=== PATIENT | female | born 1965 | race Caucasian/White ===

== ENCOUNTER 2023-04-23 17:23 | Emergency (ER) | payer OTHER, SELFPAY ==
[2023-04-23] VITALS (44 sets, daily range): BP systolic 112–172; BP diastolic 52–128; PULSE 57–84; RESP 6–24; TEMP 36.5–37.4; O2SAT 95–99
--- NOTE | 2023-04-23 17:15 | RT.EKG_ITS ---
APPROVED REPORT Exam: Resting ECG Reason for Exam: chest pain Patient Location: E HR:82 bpm ECG Measurements Heart Rate 82 AXIS NM 136 P 60 QRSd 77 QRS 66 QT 373 T 72 QTc 436 Conclusion Sinus rhythm 82 normal axis no stemi
[2023-04-23 18:23] LABS: Abs Immature Grans 0.05 10^3/uL (0.0-0.06); Absolute Basophil Count 0.06 10^3/uL (0.0-0.2); Absolute Eosinophil Count 0.08 10^3/uL (0.0-0.7); Absolute Lymphocyte Count 1.71 10^3/uL (1.2-3.4); Absolute Neutrophil Count 5.28 10^3/uL (1.2-6.7); Basophils % 0.8; HCT 32.3 % (36.0-46.0); HGB 12.8 g/dL (11.2-15.7); Immature Grans % 0.7; Lymphocytes % 22.3; MCV 84 fL (80-95); Monocytes % 6.5; Neutrophils % 68.7; Platelet Count 175 10^3/uL (130-400); RBC 3.84 10^6/uL (3.93-5.22); RDW 12.5 % (11.7-14.6); RDW-SD 37.7 fL; WBC 7.68 10^3/uL (4.4-10.8)
[2023-04-23 18:56] LABS: ALT 18 U/L (14-59); AST 17 U/L (15-37); Albumin 4.7 g/dL (3.4-5.0); Alkaline Phosphatase 80 U/L (46-116); Anion Gap 9.1 mmol/L (3-11); BUN 20 mg/dL (7-18); Bilirubin, Total 2.9 mg/dL (0.2-1.0); CO2 28.9 mmol/L (21.0-32.0); CREATININE 0.8 mg/dL (0.55-1.02); Calcium 9.4 mg/dL (8.5-10.1); Chloride 104 mmol/L (98-107); Estimated GFR 85.89 (mL/min/1.73m2); Glucose 91 mg/dL (74-106); Potassium 4.2 mmol/L (3.5-5.1); Sodium 142 mmol/L (136-145); Total Protein 7.3 g/dL (6.4-8.2)
[2023-04-23 18:59] LABS: Troponin I 79 ng/L (< or =60)
[2023-04-23] MEDS: Aspirin 325 MG TAB PO (19:19)
[2023-04-23 20:15] LABS: Diff Comment RBC Morph Reviewed; RBC Morphology Normal
--- NOTE | 2023-04-23 20:45 | RT.EKG_ITS ---
APPROVED REPORT Exam: Resting ECG Reason for Exam: chest pain Patient Location: E HR:68 bpm ECG Measurements Heart Rate 68 AXIS CA 146 P 48 QRSd 74 QRS 57 QT 431 T 72 QTc 459 Conclusion Sinus rhythm 68 normal axis no stemi
[2023-04-23 20:58] LABS: Troponin I 79 ng/L (< or =60)
[2023-04-23] MEDS: Normal Saline Flush 10 ML SYR IVP (21:03)
[2023-04-23] MEDS: Acetaminophen 500 MG TAB 1000 MG PO (21:24)
[2023-04-23 21:58] LABS: COVID-19 PCR Negative (Negative); Influenza A PCR Negative (Negative); Influenza B PCR Negative (Negative); RSV PCR Negative (Negative)
[2023-04-23 21:59] LABS: Source Nasopharynx
--- NOTE | 2023-04-24 00:02 | ED.GENADUL_ITS ---
HPI General Date/Time Provider Initiated Documentation: 04/23/23 17:55 . Limitations to Documentation: no limitations . Information obtained by: patient . HPI Narrative: 57-year-old female with out significant past medical history presents for evaluation of chest pain. She reports that she is in town visiting for a ski vacation. She reports that yesterday while skiing she was doing some once that was very difficult for her. She had left-sided chest pain and it was a stabbing sensation going from front to back. Not associated with shortness of breath. [place] more like muscle soreness. It improved when she stopped skiing but was still present, she took some anti-inflammatories and did some muscle rolling of with a ball. She states that this improved the pain. She has not had any pain today. She was nervous since she is up here and is supposed to continue skiing for the next week. She does not smoke, she has had prior episodes of chest pain. She seems to notice them on exertion and when she is in the cold. Related Data Home Medications Medication Instructions Recorded Confirmed acetaminophen 500 mg tablet 1,000 mg PO Q6H PRN pain 04/23/23 04/23/23 (Tylenol Extra Strength) Allergies Allergy/AdvReac Type Severity Reaction Status Date / Time Penicillins Allergy Severe Anaphylaxis Unverified 04/23/23 17:34 General Stated Complaint: Chest Pain LUCR[place]: 3 Exam Narrative Exam Narrative: Review of Systems: All systems reviewed & are unremarkable except as noted in HPI and below Well-developed, no acute distress NCAT PERRL, normal conjunctiva RRR no murmurs, no chest wall tenderness to palpation Unlabored respiratory effort, clear breath sounds bilaterally Nondistended abdomen Extremities w/o deformity, no cyanosis, no edema No rashes or lesions. no focal neurologic deficits Appropriate mood and affect Course Vital Signs Vital signs: Vital Signs Temperature 36.5 C 04/23/23 17: Pulse 79 04/23/23 17:26 Respiratory Rate 12 04/23/23 17:26 Blood Pressure 161/128 H 04/23/23 17:26 Pulse Oximetry 99 04/23/23 17:26 Temperature 36.7 C 04/23/23 22:08 Temperature Source Oral 04/23/23 17:26 Pulse 72 04/23/23 22:08 Pulse 68 04/23/23 21:20 Respiratory Rate 16 04/23/23 22:08 Respiratory Effort Normal 04/23/23 17:32 Respiratory Depth Normal 04/23/23 17:32 Respiratory Pattern Normal 04/23/23 17:32 Blood Pressure 112/65 04/23/23 22:08 Blood Pressure Mean 78 04/23/23 21:16 Blood Pressure Position Sitting 04/23/23 17:26 Pulse Oximetry 99 04/23/23 22:08 Oxygen Delivery Method Room Air 04/23/23 17:26 Oxygen Flow Rate 0 04/23/23 17:26 Pain Level 0 04/23/23 22:08 Lab/Test Results Lab/Test Results: Laboratory Tests Range/Units 04/23/23 04/23/23 04/23/23 17:47 20:32 21:17 WBC (4.4-10.8) 10^3/uL 7.68 RBC (3.93-5.22) 10^6/uL 3.84 L Hgb (11.2-15.7) g/dL 12.8 Hct (36.0-46.0) % 32.3 L MCV (80-95) fL 84 MCH (27.0-33.0) pg MCHC (32.0-36.0) % RDW (11.7-14.6) % 12.5 Plt Count (130-400) 10^3/uL 175 MPV (8.0-11.0) fL 10.0 Immature Gran % 0.7 Neutrophils % 68.7 Lymphocytes % 22.3 Monocytes % 6.5 Eosinophils % 1.0 Basophils % 0.8 Nucleated RBC % (0.0-0.3) % 0.0 Absolute Neutrophils (1.2-6.7) 10^3/uL 5.28 Absolute Lymphocytes (1.2-3.4) 10^3/uL 1.71 Absolute Monocytes (0.1-0.8) 10^3/uL 0.50 Absolute Eosinophils (0.0-0.7) 10^3/uL 0.08 Absolute Basophils (0.0-0.2) 10^3/uL 0.06 RBC Morphology Normal Sodium (136-145) mmol/L 142 Potassium (3.5-5.1) mmol/L 4.2 Chloride (98-107) mmol/L 104 Carbon Dioxide (21.0-32.0) mmol/L 28.9 Anion Gap (3-11) mmol/L 9.1 BUN (7-18) mg/dL 20 H Creatinine (0.55-1.02) mg/dL 0.8 Est GFR (CKD-EPI 2020) (mL/min/1.73m2) 85.89 Glucose (74-106) mg/dL 91 Calcium (8.5-10.1) mg/dL 9.4 Total Bilirubin (0.2-1.0) mg/dL 2.9 H AST (15-37) U/L 17 ALT (14-59) U/L 18 Alkaline Phosphatase (46-116) U/L 80 Troponin I (< or =60) ng/L 79 H* 79 H* Total Protein (6.4-8.2) g/dL 7.3 Albumin (3.4-5.0) g/dL 4.7 COVID-19 Source Nasopharynx SARS-CoV-2 (PCR) (Negative) Negative Influenza Type A (PCR) (Negative) Negative Influenza Type B (PCR) (Negative) Negative RSV (PCR) (Negative) Negative Medical Decision Making Emergent evaluation of chest pain. Initial differential includes costochondritis, muscle strain, pleurisy, bronchospasm. Less likely ACS. EKG reviewed, it is normal, no ischemic changes. Patient has no risk factors for ACS, but given her age and exertional component will check labs including cardiac enzymes Lab work reviewed, normal CBC, no electrolyte derangement. Initial troponin is slightly elevated to 79. Repeat EKG does not indicate any changes. Patient is still chest pain-free. A dose of aspirin was given. Plan for serial troponin to reassess Second troponin resulted at the same level. Discussed with cardiology at [facility]. They concur this sounds muscular, but given the exertional component and the elevated troponin would recommend stress testing. Discussed this plan with the patient. Given that she is not from here, she would like to go home to follow-up with her own physician team. Given that tomorrow is a holiday and she is unlikely to get a stress test in this hospital, it seems reasonable for her to go back to the [place] to complete this care. She understands to return to the closest emergency department if she develops any chest pain. Is unclear the specific etiology of the slight troponin leak, but is unlikely to be ACS. Cardiology did not recommend starting ACS protocol. Shared decision making with patient and she will go home and she is discharged in good condition. Medical Records Medical records reviewed: Yes I reviewed the patient's medical records. Lab Data Lab results reviewed: Yes I reviewed the patient's lab results. ECG Data Attestation: I personally reviewed and interpreted this ECG (s) as follows: Interpretation: Sinus 68 normal axis no STEMI normal ST segments Quality:SDOH Health Related Social Needs: No Data to Display PFSH All Active Problems Chest pain (Acute) Elevated troponin (Acute) Social History Smoking risk assessment performed?: No Discharge Plan Disposition Patient Disposition: Home Discharge Details Clinical Impression: Elevated troponin, Chest pain Primary Care Provider: Unknown,Unknown ED Provider: Joseluis Sifuentes Home Meds and New Rx's Prescriptions: No Action acetaminophen [Tylenol Extra Strength] 500 mg tablet 1,000 mg PO Q6H PRN (Reason: pain) Discharge Instructions Instructions: Chest Pain (ED) Additional Instructions: Your troponins were noted to be elevated here today. please follow-up with your primary care provider and automobile rental agent to get a stress test as soon as possible preferably Monday or Monday. If you have any additional chest pain, please return to your nearest emergency department.
== END 2023-04-23 22:17 | disposition home or self-care (01) ==
LOC: ER 22:21
PROVIDERS: Emergency Provider Emergency Medicine
DX: R07.89 Other chest pain (principal); M54.6 Pain in thoracic spine; R79.89 Other specified abnormal findings of blood chemistry; Z11.52 Encounter for screening for COVID-19
CPT/HCPCS: 80053; 87637; 93005; 99283; 84484; 85025; 93010